=== PATIENT | female | born 1990 | race Native Hawaiian/Other Pacific Islander ===

== ENCOUNTER 2024-02-29 11:12 | Outpatient (CLI) | payer MEDICAID, SELFPAY ==
[2024-02-29 11:23] VITALS: BMI 29.7
[2024-02-29 11:28] VITALS: BP 128/74; PULSE 76
[2024-02-29 11:30] VITALS: RESP 16; TEMP 36.9
[2024-02-29 11:48] VITALS: BP 118/56; PULSE 93
[2024-02-29 12:08] VITALS: BP 111/71; PULSE 81
[2024-02-29 12:29] VITALS: BP 116/70; PULSE 83
== END 2024-02-29 12:50 | disposition home or self-care (01) ==
LOC: OPOB 11:17 → OBGYN 11:21
PROVIDERS: Visit Provider Family Medicine
DX: O36.8190 Decreased fetal movements, unspecified trimester, not applicable or unspecified (principal); Z3A.00 Weeks of gestation of pregnancy not specified
CPT/HCPCS: 59025; 99211

== ENCOUNTER 2024-03-12 00:30 | Emergency (ER) | payer MEDICAID, SELFPAY ==
[2024-03-12 00:35] VITALS: BP 117/69; PULSE 101; RESP 14; TEMP 36.7; O2SAT 97
--- NOTE | 2024-03-12 00:49 | ED_ITS ---
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 Cushion Maker Hand said she put a stitch or 2 in the anterior tear but felt she needed to be evaluated for the posterior tear. During exam patient was sitting up in chair breast-feeding baby in no acute distress. Related Data Home Medications Medication Instructions Recorded Confirmed 02/29/24 Allergies Allergy/AdvReac Type Severity Reaction Status Date / Time bee venom protein (honey bee) Allergy Unknown Verified 03/12/24 00:38 Review of Systems General: Reports: 10 or more systems reviewed and unremarkable except in HPI and below Physical Exam Const: COMMON NORMALS: no acute distress, average body habitus, patient oriented x3, no limitations, healthy appearing, alert and well nourished Neck/C-Spine: COMMON NORMALS: no JVD Chest: COMMONS NORMALS: normal inspection of the chest and normal palpation of entire chest wall Resp: COMMON NORMALS: normal respiratory effort, No retractions, No use of accessory muscles and clear to auscultation bilaterally AUSCULTATION: clear to auscultation bilaterally Cardio: COMMON NORMALS: no JVD, regular rate, regular rhythm, S1 normal heart sound present, S2 normal heart sound present, No gallops present (Cardio), No clicks present (Cardio), No murmurs present (Cardio) and No rub (Cardio) RATE: regular rate RHYTHM: regular rhythm HEART SOUNDS: S1 normal heart sound present and S2 normal heart sound present GI: COMMON NORMALS: Normal to inspection, nondistended, normoactive bowel sounds present, Soft to palpation, No hepatosplenomegaly present and no masses; negative for non-tender (Mildly tender consistent with gravid uterus) PALPATION: Yes Soft to palpation and Yes No hepatosplenomegaly present Neuro: COMMON NORMALS: patient oriented x3 SENSORIUM/ORIENTATION: Yes alert Course Vital Signs: Vital signs: Vital Signs Temperature 98.1 F 03/12/24 00:35 Pulse Rate 101 H 03/12/24 00:35 Respiratory Rate 14 03/12/24 00:35 Blood Pressure 117/69 03/12/24 00:35 Pulse Oximetry 97 03/12/24 00:35 MDM - Female Medical Decision Making Dr. Cameron notified to come evaluate the patient secondary to possible posterior tear during home . Dr. Cameron examined patient said everything is okay that he would recommend us giving her TXA and discharging her home. Medical Records I reviewed the patient's medical records. Lab Data I reviewed the patient's lab results. No radiology studies performed this visit Discharge Plan Discharge Patient Disposition: Home Clinical Impression: Vaginal bleeding Condition: Stable Prescriptions: No Action Discharge Orders: Discharge ED (Routine); Ordered 03/12/24 Ordered By: Christopher Isbell Patient Instructions: Vaginal Delivery (DC) Activity Restrictions/Additional Instructions: You are seen and evaluated by Dr. Cameron JOCKEY ROOM CUSTODIAN in the ER. You are given medicine called TXA to help with your bleeding. Please follow Dr. Cameron's recommendations. Thank you for choosing [facility] for your healthcare needs today. Please realize that you were seen in the emergency department and that we are providing you with an emergency medical screening exam and this may not be a complete and all exclusive of all testing and/or medical workup we may need to determine your element or severity of your illness. It is very important that you follow-up as instructed with your primary care provider or specialist for the additional evaluation and to discuss your medical treatment plan. You may return to the emergency department should you have concerns or if your condition changes or worsens in any way. Coding Level of Care Code ED Production Underwriter for Stephen Castro
[2024-03-12] MEDS: tranexamic acid 1,000 MG/100 ML PREMIX 600 MG IV (01:14)
[2024-03-12] MEDS: ibuprofen 800 mg tablet PO (01:18)
[2024-03-12 01:39] VITALS: BP 118/66; PULSE 75; RESP 16; O2SAT 97
== END 2024-03-12 01:41 | disposition home or self-care (01) ==
PROVIDERS: Emergency Provider Emergency Medicine
DX: N93.9 Abnormal uterine and vaginal bleeding, unspecified (principal)
CPT/HCPCS: 96365; 99284